=== PATIENT | female | born 1980 | race Caucasian/White ===

== ENCOUNTER 2021-05-28 19:14 | Emergency (ER) | payer OTHER ==
[~2021-05-28 19:14] MED LIST: BENTYL 20MG TAB20 MG PO; IBUPROFEN600 MG PO; IMITREX100 MG PO; LODINE CAP 300300 MG PO; MACROBID 100 M100 MG PO; ONDANSETRON ODT4 MG PO; PYRIDIUM100 MG PO; ZOFRAN ODT 4 MG4 MG PO; ZOFRAN4 MG PO
[2021-05-28 20:29] LABS: HEMOGLOBIN 11.9 gm/dl (12.3-15.3); RED BLOOD COUNT 4.12 M/UL (4.00-5.10)
[2021-05-28 20:51] LABS: BUN/CREATININE RATIO 20 (0-10)
== END 2021-05-28 23:30 | disposition home or self-care (01) ==
LOC: ER1 19:14
PROVIDERS: Physician Assistant
DX: R20.2 Paresthesia of skin (principal); R07.9 Chest pain, unspecified; R53.1 Weakness; Z88.0 Allergy status to penicillin; F17.210 Nicotine dependence, cigarettes, uncomplicated
CPT/HCPCS: 70450; 71045; 80053; 82550; 82553; 83874; 83880; 84484; 85025; 85379; 85610; 85730; 99285

== ENCOUNTER 2021-11-02 11:36 | Emergency (ER) | payer OTHER ==
[2021-11-02] MEDS ORDERED: IMITREX6 MG/0.51 SC ×2 (13:05→13:07)
== END 2021-11-02 13:07 | disposition home or self-care (01) ==
LOC: ER1 11:36
DX: R51.9 Headache, unspecified (principal); Z88.0 Allergy status to penicillin
CPT/HCPCS: 96372; 99283; J3030